=== PATIENT | male | born 1945 | race Caucasian/White ===

== ENCOUNTER 2016-07-12 12:25 | Inpatient (IN) | payer MEDICARE, BC ==
[~2016-07-12] VITALS: Ht 165.1 cm; Wt 93.8 kg
[2016-07-12] VITALS (10 sets, daily range): BP systolic 105–151; BP diastolic 51–66; PULSE 41–55; RESP 16–20; TEMP 98.2–98.7; O2SAT 94–98
[~2016-07-12 12:25] MED LIST: ALPR-138; AMIT10TA13; FENO50TA
[2016-07-12] MEDS ORDERED: SODIUM CHLORIDE 0.9% FLUSH 5 ML FLUSH IVF PRN (12:45)
--- NOTE | 2016-07-12 13:12 | RADRPT ---
EXAM DATE/TIME: 07/12/2016 13:00 [facility] COMPARISON: No previous studies available for comparison. INDICATIONS : Trauma; dizziness for one month. RADIATION DOSE: 56.35 CTDIvol (mGy) MEDICAL HISTORY : Hypertension. Cardiovascular disease SURGICAL HISTORY : CABG ENCOUNTER: Initial ACUITY: 1 day PAIN SCALE: 5/10 LOCATION: cranial TECHNIQUE: Multiple contiguous axial images were obtained of the head. Using automated exposure control and adj ustment of the mA and/or kV according to patient size, radiation dose was kept as low as reasonably a chievable to obtain optimal diagnostic quality images. FINDINGS: CEREBRUM: The ventricles are normal for age. There is mild bilateral cortical atrophy characteristic for patien t's age. No evidence of midline shift, mass lesion, hemorrhage or acute infarction. No extra-axial f luid collections are seen. POSTERIOR FOSSA: The cerebellum and brainstem are intact. The 4th ventricle is midline. The cerebellopontine angle i s unremarkable. EXTRACRANIAL: The visualized portion of the orbits is intact. Chronic sinus disease the ethmoid sinuses bilaterally . SKULL: The calvaria is intact. No evidence of skull fracture. CONCLUSION: Normal examination for a patient of this age. Feroz Abrams MD on July 12, 2016 at 13:09 Board Certified Radiologist. This report was verified electronically.
[2016-07-12] MEDS ORDERED: METO25TA3 PO (13:13)
[2016-07-12] MEDS ORDERED: METF500T4 PO (13:13)
[2016-07-12] MEDS ORDERED: SIMV40TA PO (13:13)
[2016-07-12] MEDS ORDERED: ALPH0.1S EACH EYE (13:13)
[2016-07-12] MEDS ORDERED: NORT10CA PO (13:13)
[2016-07-12] MEDS ORDERED: ASPI325T PO (13:13)
[2016-07-12 13:15] LABS: AUTOMATED NEUTROPHIL # 6.7 TH/MM3 (1.8-7.7); BASOPHIL # 0.1 TH/MM3 (0-0.2); BASOPHIL % 1.1 % (0.0-2.0); EOSINOPHIL # 0.7 TH/MM3 (0-0.4); EOSINOPHIL % 5.8 % (0.0-4.0); HEMATOCRIT 38.5 % (39.0-51.0); HEMO FLAGS DIFF FINAL; LYMPH % 26.2 % (9.0-44.0); MEAN CELL VOLUME 100.7 FL (80.0-100.0); MEAN CORPUSCULAR HEMOGLOBIN 35.6 PG (27.0-34.0); MEAN CORPUSCULAR HGB CONC 35.3 % (32.0-36.0); MONO % 8.5 % (0.0-8.0); NEUT % 58.4 % (16.0-70.0); PLATELET COUNT 215 TH/MM3 (150-450); RED BLOOD COUNT 3.83 MIL/MM3 (4.50-5.90); RED CELL DISTRIBUTION WIDTH 14.3 % (11.6-17.2); WHITE BLOOD COUNT 11.5 TH/MM3 (4.0-11.0)
--- NOTE | 2016-07-12 13:26 | RADRPT ---
EXAM DATE/TIME: 07/12/2016 13:09 [facility] COMPARISON: No previous studies available for comparison. INDICATIONS : Dizziness. Patient doesnt have any chest complaints. MEDICAL HISTORY : Hypertension. Cardiovascular disease. SURGICAL HISTORY : CABG. ENCOUNTER: Initial ACUITY: 1 day PAIN SCORE: 0/10 LOCATION: chest FINDINGS: A single view of the chest demonstrates the lungs to be symmetrically aerated without evidence of mas s, infiltrate or effusion. The cardiomediastinal contours are unremarkable. There is evidence of pre vious cardiothoracic surgery. Osseous structures are intact. CONCLUSION: No acute disease. Feroz Abrams MD on July 12, 2016 at 13:24 Board Certified Radiologist. This report was verified electronically.
[2016-07-12 13:29] LABS: ANION GAP 9 MEQ/L (5-15); BICARBONATE 24.2 MEQ/L (21.0-32.0); BLOOD UREA NITROGEN 22 MG/DL (7-18); CHLORIDE 105 MEQ/L (98-107); GLOMERULAR FILTRATION RATE 57 ML/MIN (>89); MAGNESIUM 1.9 MG/DL (1.5-2.5); POTASSIUM 4.3 MEQ/L (3.5-5.1); SODIUM (NA) 138 MEQ/L (136-145)
[2016-07-12 13:32] LABS: APTT (PATIENT) 25.7 SEC (24.3-30.1); PROTHROMBIN TIME - PATIENT 10.7 SEC (9.8-11.6)
[2016-07-12 13:33] LABS: CREATINE KINASE 139 U/L (39-308)
[2016-07-12 13:45] LABS: CKMB 1.6 NG/ML (0.5-3.6)
--- NOTE | 2016-07-12 14:44 | PD ---
HPI Chief Complaint: Dizziness Time Seen by Provider: 12:37 Travel History International Travel<30 days: No Contact w/Intl Traveler<30days: No Traveled to known affect area: No History of Present Illness HPI 71-year-old male came to the emergency room with history of dizziness that's on and off for past 1 month but since yesterday has been persistent. Patient says that when he stands up he gets worse and feels like he is going to fall. No history of nausea or vomiting. He has been feeling weak since past 2 days as well. He checked his heart rate yesterday morning and it was in 70s been at that time he did not have the symptoms. When he came in his heart rate was in the 40s. Blood pressure stable. Patient is awake and answering questions appropriately. No history of chest pain or syncopal episodes. Patient does have cardiac history and history of valve replacement. [facility] Past Medical History Narrative Medical List of his past medical history as reviewed from the nursing note. Anxiety: Yes Depression: Yes Cardiovascular Problems: Yes High Cholesterol: Yes Diabetes: Yes Patient Takes Glucophage: Yes Hypertension: Yes Past Surgical History Appendectomy: Yes Coronary Artery Bypass Graft: Yes Social History Alcohol Use: Yes (RARELY) Tobacco Use: No Substance Use: No Allergies-Medications (Allergen,Severity, Reaction): Coded Allergies: No Known Allergies (Verified , 07/21/06) Comments No known drug allergies. Reported Meds & Prescriptions Reported Meds & Active Scripts Active Reported Nortriptyline (Nortriptyline HCl) 10 Mg Cap 10 Mg PO HS Alphagan P Opth Drops (Brimonidine Tartrate) 0.1% Soln 1 Drop EACH EYE Q8HR Metoprolol Tartrate 25 Mg Tab 25 Mg PO BID Metformin ER (Metformin HCl) 500 Mg Milind 500 Mg PO DAILY With evening meal Simvastatin 40 Mg Tab 40 Mg PO HS Aspirin 325 Mg Tab 325 Mg PO DAILY Tricor (Fenofibrate) 145 Mg Tab Elavil (Amitriptyline HCl) 10 Mg Tab Xanax (Alprazolam) 0.25 Mg Tab Narrative Medication List of his home medications reviewed from the nursing note. Review of Systems Except as stated in HPI: all other systems reviewed are Neg Physical Exam Narrative GENERAL: Awake, alert, moderate distress, elderly, pale SKIN: Warm and dry. HEAD: Atraumatic. Normocephalic. EYES: Pupils equal and round. No scleral icterus. No injection or drainage. ENT: No nasal bleeding or discharge. Mucous membranes pink and moist. NECK: Trachea midline. No JVD. CARDIOVASCULAR: Regular rate and rhythm. Bradycardia. No murmur appreciated. RESPIRATORY: No accessory muscle use. Clear to auscultation. Breath sounds equal bilaterally. GASTROINTESTINAL: Abdomen soft, non-tender, nondistended. Hepatic and splenic margins not palpable. MUSCULOSKELETAL: No obvious deformities. No clubbing. No cyanosis. No edema. NEUROLOGICAL: Awake and alert. No obvious cranial nerve deficits. Motor grossly within normal limits. Normal speech. PSYCHIATRIC: Appropriate mood and affect; insight and judgment normal. Data Data Last Documented VS Vital Signs Date Time Temp Pulse Resp B/P Pulse Ox O2 Delivery O2 Flow Rate FiO2 07/12/16 15:30 45 18 115/59 97 Room Air 07/12/16 12:29 98.2 Orders Electrocardiogram (07/12/16 12:43) Basic Metabolic Panel (Bmp) (07/12/16 12:43) B-Type Natriuretic Peptide (07/12/16 12:43) Ckmb (Isoenzyme) Profile (07/12/16 12:43) Complete Blood Count With Diff (07/12/16 12:43) Magnesium (Mg) (07/12/16 12:43) Prothrombin Time / Inr (Pt) (07/12/16 12:43) Act Partial Throm Time (Ptt) (07/12/16 12:43) Troponin I (07/12/16 12:43) Chest, Single Ap (07/12/16 12:43) Ecg Monitoring (07/12/16 12:43) Bilateral Bp Monitoring (07/12/16 12:43) Iv Access Insert/Monitor (07/12/16 12:43) Oximetry (07/12/16 12:43) Oxygen Administration (07/12/16 12:43) Sodium Chloride 0.9% Flush (Ns Flush) (07/12/16 12:45) Ct Brain W/O Iv Contrast(Rout) (07/12/16 ) CKMB (07/12/16 12:55) CKMB% (07/12/16 12:55) Consult Cardiology (07/12/16 ) ^ Infusion (07/12/16 ) Dopamine Inj Premix (Dopamine Inj Premix (07/12/16 15:15) Dopamine Inj (Intropin Inj) (07/12/16 15:15) Dopamine Inj (Intropin Inj) (07/12/16 15:15) Aspirin (Aspirin) (07/12/16 16:00) Pravastatin (Pravachol) (07/12/16 21:00) Admit To Inpatient (07/12/16 ) Code Status (07/12/16 15:15) Vital Signs (Adult) ALLEN.Q1H (07/12/16 15:15) Activity Bed Rest (07/12/16 15:15) ^ Elevate Head Of Bed (07/12/16 15:15) Diet Heart Healthy (07/12/16 Dinner) Sodium Chlor 0.9% 1000 Ml Inj (Ns 1000 M (07/12/16 17:00) Sodium Chloride 0.9% Flush (Ns Flush) (07/12/16 15:15) Sodium Chloride 0.9% Flush (Ns Flush) (07/12/16 21:00) Pantoprazole Inj (Protonix Inj) (07/13/16 09:00) Albuterol-Ipratropium Neb (Duoneb Neb) (07/12/16 15:15) Complete Blood Count With Diff (07/13/16 04:00) Comprehensive Metabolic Panel (07/13/16 04:00) Troponin I (07/12/16 15:15) Troponin I (07/12/16 21:15) Prothrombin Time / Inr (Pt) (07/13/16 04:00) Magnesium (Mg) (07/13/16 04:00) Echo 2d Comp W/Dopp(Routine) (07/12/16 ) Gauge And Weigh Machine Operator / Telemetry (07/12/16 15:15) Enoxaparin Inj (Lovenox Inj) (07/12/16 16:00) Scd Bilateral/Knee High ALLEN.BID (07/12/16 15:15) Alfredo Bilateral/Knee High ALLEN.QSHIFT (07/12/16 15:15) ^ Initiate Protocol (07/12/16 15:15) ^ Instruction (07/12/16 15:15) Misc Nursing Information (07/12/16 15:15) Chlorhexidine 2% Cloth (Chlorhexidine 2% (07/13/16 04:00) Chlorhexidine 2% Cloth (Chlorhexidine 2% (07/12/16 15:15) Mrsa Pcr Surveillance (07/12/16 15:15) Inpatient Certification (07/12/16 ) Dopamine Inj Premix (Dopamine Inj Premix (07/12/16 15:30) Terbutaline Inj (Brethine Inj) (07/12/16 15:30) ^ Medication Admin Instruction (07/12/16 15:19) ^ Notify Dr: Other (07/12/16 15:19) Phosphorus (Po4) (07/12/16 15:19) Potassium Chlor 40 Meq Premix (Kcl 40 Me (07/12/16 15:30) Potassium Chlor 20 Meq Premix (Kcl 20 Me (07/12/16 15:30) Potassium Cl 40 Meq/30 Ml Liq (Kcl 40 Me (07/12/16 15:30) Potassium Chlor 40 Meq Premix (Kcl 40 Me (07/12/16 15:30) Potassium Chlor 20 Meq Premix (Kcl 20 Me (07/12/16 15:30) Magnesium Sulfate Inj (Magnesium Sulfate (07/12/16 15:30) Magnesium Oxide (Mag-Ox) (07/12/16 15:30) Magnesium Sulfate Inj (Magnesium Sulfate (07/12/16 15:30) Potassium Phosphate (K-Phos) (07/12/16 15:30) Sodium Phosphate Inj (Sodium Phosphate I (07/12/16 15:30) Potassium Cl 40 Meq/30 Ml Liq (Kcl 40 Me (07/12/16 15:30) Potassium Phosphate (K-Phos) (07/12/16 15:30) Potassium Phosphate Inj (Potassium Phosp (07/12/16 15:30) (Hub Use Only)Inp Phy Cons/Ref (07/12/16 ) Admit Order (Ed Use Only) (07/12/16 15:37) Labs Laboratory Tests Test 07/12/16 07/12/16 07/12/16 06:10 12:55 14:52 Nasal Screen MRSA (PCR) NEGATIVE White Blood Count 11.5 TH/MM3 Red Blood Count 3.83 MIL/MM3 Hemoglobin 13.6 GM/DL Hematocrit 38.5 % Mean Corpuscular Volume 100.7 FL Mean Corpuscular Hemoglobin 35.6 PG Mean Corpuscular Hemoglobin 35.3 % Concent Red Cell Distribution Width 14.3 % Platelet Count 215 TH/MM3 Mean Platelet Volume 9.2 FL Neutrophils (%) (Auto) 58.4 % Lymphocytes (%) (Auto) 26.2 % Monocytes (%) (Auto) 8.5 % Eosinophils (%) (Auto) 5.8 % Basophils (%) (Auto) 1.1 % Neutrophils # (Auto) 6.7 TH/MM3 Lymphocytes # (Auto) 3.0 TH/MM3 Monocytes # (Auto) 1.0 TH/MM3 Eosinophils # (Auto) 0.7 TH/MM3 Basophils # (Auto) 0.1 TH/MM3 CBC Comment DIFF FINAL Differential Comment Prothrombin Time 10.7 SEC Prothromb Time International 1.0 RATIO Ratio Activated Partial 25.7 SEC Thromboplast Time Sodium Level 138 MEQ/L Potassium Level 4.3 MEQ/L Chloride Level 105 MEQ/L Carbon Dioxide Level 24.2 MEQ/L Anion Gap 9 MEQ/L Blood Urea Nitrogen 22 MG/DL Creatinine 1.24 MG/DL Estimat Glomerular Filtration 57 ML/MIN Rate Random Glucose 116 MG/DL Calcium Level 9.6 MG/DL Magnesium Level 1.9 MG/DL Total Creatine Kinase 139 U/L Creatine Kinase MB 1.6 NG/ML Troponin I 0.02 NG/ML 0.02 NG/ML B-Type Natriuretic Peptide 427 PG/ML MDM Medical Decision Making Medical Screen Exam Complete: Yes Emergency Medical Condition: Yes Medical Record Reviewed: Yes Interpretation(s) Twelve-lead EKG was reviewed by me. Third degree AV block, left bundle branch block. Heart rate of 46 bpm. Differential Diagnosis Bradycardia, presyncope, AV block Narrative Course 2:56 PM blood test results of back and within normal limits. Chest x-ray and head CT are within normal limit. I was in the room and explaining the test results to the patient and I noticed that his heart rate dipped down to the high 30s for a few seconds and then bounce back to low to mid 40s. I decided to repeat the 12-lead EKG. The 12-lead EKG is suggestive of sinus bradycardia with multiple PACs versus Mobitz type II AV block. Given his low heart rate at this point I will put him on dopamine drip. Awaiting for the fertilizer supervisor to call back. I spoke with the cotton broker who asked me to hold patient's metoprolol and order a consult. Critical Care Narrative Aggregate critical care time was 60 minutes. Time to perform other separately billable procedures was not included in the critical care time. My time did not include minutes spent treating any other patients simultaneously or on activities that did not directly contribute to the patient's treatment. The services I provided to this patient were to treat and/or prevent clinically significant deterioration that could result in: Symptomatic bradycardia, high second degree block, dopamine drip I provided critical care services requiring my management, as noted below: Chart data review, documentation time, medication orders and management, vital sign assessments/reviewing monitor data, ordering and reviewing lab tests, ordering and interpreting/reviewing x-rays and diagnostic studies, care of the patient and discussion of the patient with the admitting physicians. Procedures EKG Prior to Arrival: Yes Physician Communication Physician Communication Dr. Kelly Diagnosis Primary Impression: Second degree AV block, Mobitz type II Additional Impressions: Dizziness Symptomatic bradycardia Admitting Information Admitting Physician Requests: Admit Venu Lazaro MD Jul 12, 2016 14:44
[2016-07-12] MEDS ORDERED: CHLORHEXIDINE GLUCONATE 2 % 1 PACK (2 CLOTHS) TOP PRN (15:15)
[2016-07-12] MEDS ORDERED: MISCELLANEOUS NURSING INFORMATION XX SCH (15:15)
[2016-07-12] MEDS ORDERED: DOPamine INJ PREMIX 500 ML IV SCH ×2 (15:15→15:30)
[2016-07-12] MEDS ORDERED: DOPamine INJ 1,600 MG in DEXTROSE 5% IN WATER INJ 240 ML IV SCH ×2 (15:15)
[2016-07-12] MEDS ORDERED: DOPAMINE IV SCH ×2 (15:15)
[2016-07-12] MEDS ORDERED: WATER IV SCH ×2 (15:15)
[2016-07-12] MEDS ORDERED: DEXTROSE 5% IV SCH ×2 (15:15)
[2016-07-12] MEDS ORDERED: SODIUM CHLORIDE 0.9% FLUSH 5 ML FLUSH IV FLUSH PRN (15:15)
[2016-07-12] MEDS ORDERED: SODIUM PHOSPHATE INJ 30 MMOL in SODIUM CHLOR 0.9% 250 ML INJ 240 ML IV PRN (15:30)
[2016-07-12] MEDS ORDERED: POTASSIUM PHOSPHATE MONOBASIC 500 MG TAB PO/TUBE PRN (15:30)
[2016-07-12] MEDS ORDERED: POTASSIUM CHLOR 20 MEQ PREMIX 100 ML IV PRN ×2 (15:30)
[2016-07-12] MEDS ORDERED: POTASSIUM CL 40 MEQ/30 ML LIQ UDC PO/TUBE PRN ×2 (15:30)
[2016-07-12] MEDS ORDERED: POTASSIUM PHOSPHATE MONOBASIC 500 MG TAB PO PRN (15:30)
[2016-07-12] MEDS ORDERED: MAGNESIUM OXIDE 400 MG TAB PO PRN (15:30)
[2016-07-12] MEDS ORDERED: POTASSIUM PHOSPHATE INJ 30 MMOL in SODIUM CHLOR 0.9% 250 ML INJ 250 ML IV PRN (15:30)
[2016-07-12] MEDS ORDERED: MAGNESIUM SULFATE INJ 2 GM in SODIUM CHLORIDE 0.9% INJ 96 ML IV PRN (15:30)
[2016-07-12] MEDS ORDERED: TERBUTALINE INJ 1 MG/ML AMP SQ PRN (15:30)
[2016-07-12] MEDS ORDERED: MAGNESIUM SULFATE INJ 4 GM in SODIUM CHLORIDE 0.9% INJ 92 ML IV PRN (15:30)
[2016-07-12] MEDS ORDERED: POTASSIUM CHLOR 40 MEQ PREMIX 100 ML IV PRN ×2 (15:30)
--- NOTE | 2016-07-12 16:51 | HHI.HP ---
[facility] Service Critical Care Medicine Primary Care Physician Non-Staff Admission Diagnosis bradycardia, Mobitz type II AV block, dizziness Diagnosis: (1) Second degree AV block, Mobitz type II Diagnosis: Principal (2) Dizziness Diagnosis: Principal (3) Symptomatic bradycardia Diagnosis: Principal (4) status post CABG and aortic valve replacement March 2016 Diagnosis: Secondary Chief Complaint: Dizziness Second-degree AV block Mobitz type II Travel History International Travel<30 Days: No Contact w/Intl Traveler <30 Da: No Traveled to Known Affected Are: No History of Present Illness Patient is a 71-year-old male with past medical history significant for hypertension, diabetes, dyslipidemia, recent CABG and bovine aortic valve replacement in March 2016 in [place] who presented to the emergency department with on and off dizziness for more than one month, but worsening since last 2 days. On standing up he feels like he is going to fall. In the ER heart rate was in the 40s initially and blood pressure was stable. No history of chest pain or syncopal episodes. Chest x-ray and head CT were normal. After admission to the ER patient's HR further dip down to low 30s EKG showed second-degree Mobitz type II AV block. Because of low heart rate and dizziness patient was started on dopamine drip. Cardiology Dr. Kelly had been consulted I evaluated the patient in the ED. He states that he is slightly improved, not feeling as many palpitations. Currently on dopamine 5 mcg per KG per minute. I explained to him that if his heart block is not resolved he most likely will need a pacemaker Review of Systems ROS Limitations: Other (as per HPI) Past Family Social History Allergies: Coded Allergies: No Known Allergies (Verified , 07/21/06) Past Medical History Coronary artery disease status post CABG Status post aVR and CABG in March 2016 Anxiety/depression Type 2 diabetes Hypertension Dyslipidemia Obesity Past Surgical History Status post AVR and CABG in March 2016 Appendectomy Reported Medications Nortriptyline (Nortriptyline HCl) 10 Mg Cap 10 Mg PO HS Alphagan P Opth Drops (Brimonidine Tartrate) 0.1% Soln 1 Drop EACH EYE Q8HR Metoprolol Tartrate 25 Mg Tab 25 Mg PO BID Metformin ER (Metformin HCl) 500 Mg Milind 500 Mg PO DAILY Simvastatin 40 Mg Tab 40 Mg PO HS Aspirin 325 Mg Tab 325 Mg PO DAILY Tricor (Fenofibrate) 145 Mg Tab Elavil (Amitriptyline HCl) 10 Mg Tab Xanax (Alprazolam) 0.25 Mg Tab Active Ordered Medications Currently receiving dopamine Family History Noncontributory Social History Occasional alcohol No tobacco or drug use Physical Exam Vital Signs Vital Signs Date Time Temp Pulse Resp B/P Pulse Ox O2 Delivery O2 Flow Rate FiO2 07/12/16 16:36 55 18 112/55 96 Room Air 07/12/16 15:30 45 18 115/59 97 Room Air 07/12/16 14:53 42 18 105/51 97 Room Air 07/12/16 12:46 97 Room Air 07/12/16 12:46 98 Room Air 07/12/16 12:43 42 18 98 Room Air 07/12/16 12:38 47 18 98 07/12/16 12:29 98.2 48 16 117/51 95 Room Air Physical Exam GENERAL: Awake, alert, in mild distress SKIN: Warm and dry. HEAD: Atraumatic. Normocephalic. EYES: Pupils equal and round. No scleral icterus. No injection or drainage. ENT: No nasal bleeding or discharge. Mucous membranes pink and moist. NECK: Trachea midline. No JVD. CARDIOVASCULAR: Second-degree Mobitz type II heart block. Bradycardia. Currently on 5 g per KG per minute of dopamine with heart rate bleeding from 45 -50 CHEST: Well-healing CABG scar RESPIRATORY: No accessory muscle use. Clear to auscultation. Breath sounds equal bilaterally. GASTROINTESTINAL: Abdomen obese soft, non-tender, nondistended. Hepatic and splenic margins not palpable. MUSCULOSKELETAL: No cyanosis. No edema. NEUROLOGICAL: Awake and alert. No obvious cranial nerve deficits. Motor grossly within normal limits. Normal speech. PSYCHIATRIC: Appropriate mood and affect; insight and judgment normal. Laboratory Laboratory Tests Test 07/12/16 12:55 White Blood Count 11.5 Red Blood Count 3.83 Hemoglobin 13.6 Hematocrit 38.5 Mean Corpuscular Volume 100.7 Mean Corpuscular Hemoglobin 35.6 Mean Corpuscular Hemoglobin 35.3 Concent Red Cell Distribution Width 14.3 Platelet Count 215 Mean Platelet Volume 9.2 Neutrophils (%) (Auto) 58.4 Lymphocytes (%) (Auto) 26.2 Monocytes (%) (Auto) 8.5 Eosinophils (%) (Auto) 5.8 Basophils (%) (Auto) 1.1 Neutrophils # (Auto) 6.7 Lymphocytes # (Auto) 3.0 Monocytes # (Auto) 1.0 Eosinophils # (Auto) 0.7 Basophils # (Auto) 0.1 CBC Comment DIFF FINAL Differential Comment Prothrombin Time 10.7 Prothromb Time International 1.0 Ratio Activated Partial 25.7 Thromboplast Time Sodium Level 138 Potassium Level 4.3 Chloride Level 105 Carbon Dioxide Level 24.2 Anion Gap 9 Blood Urea Nitrogen 22 Creatinine 1.24 Estimat Glomerular Filtration 57 Rate Random Glucose 116 Calcium Level 9.6 Magnesium Level 1.9 Total Creatine Kinase 139 Creatine Kinase MB 1.6 Troponin I 0.02 B-Type Natriuretic Peptide 427 Result Diagram: 07/12/16 1255 07/12/[address] of the head and chest x-ray did not show any acute findings Assessment and Plan Problem List: (1) Second degree AV block, Mobitz type II ICD Code: I44.1 Status: Acute (2) Dizziness ICD Code: R42 Status: Acute (3) Symptomatic bradycardia ICD Code: R00.1 Status: Acute (4) status post CABG and aortic valve replacement March 2016 Status: Acute (5) Anxiety ICD Code: F41.9 Status: Chronic (6) Depression ICD Code: F32.9 Status: Chronic (7) Hypertension ICD Code: I10 Status: Acute (8) Type 2 diabetes mellitus ICD Code: E11.9 Status: Chronic (9) Dyslipidemia ICD Code: E78.5 Status: Acute Assessment and Plan NEURO: Anxiety/depression -Hold Elavil. Continue when necessary Xanax. Continue Alphagan eyedrops RESP: -Nasal cannula oxygen if needed, when necessary bronchodilators if needed CV: Second-degree AV block Mobitz type II Symptomatic bradycardia/dizziness Status post 1 vessel CABG and bovine aortic valve replacement -Hold metoprolol, may need pacemaker the heart block not resolved in the next 24 -48 hours -Dopamine to keep heart rate about 40, MAP>65 -Hold metoprolol, continue aspirin simvastatin and TriCor -Cardiology Dr. Kelly, check 2-D echocardiogram trend cardiac enzymes GI: -Heart healthy diet, IV Protonix : -Monitor renal function closely. Place Patel catheter if needed ID: -No indication for antibiotics at this time HEME: -Monitor CBC, CMP, coags ENDO: Type 2 diabetes Dyslipidemia -Hold metformin, sliding scale insulin -Electrolyte replacement per protocol -Continue simvastatin, hold TriCor PROPH: -Bilateral lower extremity SCDs. Lovenox 40 mg subcutaneous daily, Protonix 40 mg IV daily -LINES: Utilize peripheral IVs, central line if needed CC time 37 min Code Status Full Discussed Condition With Dr. Lazaro and the patient and his Problem Qualifiers (1) Depression: Qualified Code: F32.9 - Depression, unspecified depression type (2) Hypertension: Qualified Code: I10 - Essential hypertension (3) Type 2 diabetes mellitus: Jessica Caballero MD Jul 12, 2016 16:51 Jessica Caballero MD Jul 12, 2016 16:51
--- NOTE | 2016-07-12 16:56 | MB ---
cc: POOL ORTEGA MD DATE OF CONSULTATION 07/12/16 HISTORY OF PRESENT ILLNESS Mr. Carrillo is a 71-year-old white male with a history of one vessel bypass and bioprosthetic aortic valve placement last year in [place]. He presents with dizziness for the last month which has been getting worse. He is not having any chest pain or shortness of breath. He had no symptoms prior to his bypass. His initial heart rate was 40s. He was found to have a second degree AV block. PAST MEDICAL HISTORY Positive for coronary artery disease, single vessel bypass and aortic valve replacement. History of diabetes mellitus, hypertension, dyslipidemia, obesity, depression, anxiety. MEDICATIONS Include: 1. Xanax. 2. Aspirin. 3. Simvastatin. 4. Metformin. 5. Nortriptaline. 6. Metoprolol 25 milligrams twice a day. 7. Alphagan Eye drops. ALLERGIES None. SOCIAL HISTORY The patient does not smoke anymore. He drinks alcohol infrequently. FAMILY HISTORY Negative for heart disease. REVIEW OF SYSTEMS The review of systems is otherwise negative. PHYSICAL EXAMINATION VITAL SIGNS: Blood pressure 115/59, pulse 45 and irregular. HEAD, EYES, EARS, NOSE, THROAT: Negative. NECK: 2+ carotid upstrokes, no bruits. LUNGS: Clear. HEART: Irregular. No murmur or gallop. ABDOMEN: Abdomen soft, obese. No bruits. EXTREMITIES: Without edema. 1+ distal pulses. NEUROLOGIC: Grossly nonfocal. CARDIOLOGY STUDIES EKG was reviewed and showed normal sinus rhythm, mild interventricular conduction delay and second degree AV block, slight TN prolongation suggestive of type I AV block; but type II Mobitz AV block can not completely excluded. LABS Hemoglobin 13.6. Potassium 4.3, creatinine 1.2. CK 139. Troponin 0.02. BNP 427. DIAGNOSIS: 1. Dizziness. 2. Bradycardia. 3. Second degree AV block. 4. Coronary artery disease, history of coronary bypass. 5. Status post aortic valve replacement. 6. Hypertension. 7. Diabetes mellitus. 8. Dyslipidemia. DISPOSITION: Mr. Carrillo will be monitored on telemetry. We will discontinue his metoprolol at this time. He continue his other medications including aspirin and simvastatin. I will follow him for cardiology during his hospitalization. He will be scheduled to follow up in our office as outpatient after discharge. MD CAROLYN Tirado /4:15 PM /4:31 PM [place]
[2016-07-12] MEDS ORDERED: GLUCAGON 1 MG/ML VIAL OTHER PRN (17:00)
[2016-07-12] MEDS: INSULIN ASPART SUPPLEMENTAL SCALE SQ SCH ×2 (17:00→20:43)
[2016-07-12] MEDS ORDERED: DEXTROSE 50% IN WATER 50 ML VIAL(D50) IV PUSH PRN (17:00)
[2016-07-12] MEDS: ASPIRIN 325 MG TAB PO SCH (17:05)
[2016-07-12] MEDS: ENOXAPARIN SODIUM 40 MG/0.4 ML SYRINGE SQ SCH (17:05)
[2016-07-12] MEDS ORDERED: BRIMONIDINE OPTH EACH EYE SCH (17:15)
[2016-07-12] MEDS: SODIUM CHLOR 0.9% 1000 ML INJ 1,000 ML IV SCH (18:26)
[2016-07-12] MEDS: SODIUM CHLORIDE 0.9% FLUSH 5 ML FLUSH IV FLUSH SCH (20:42)
[2016-07-12] MEDS: PRAVASTATIN SOD 80 MG TAB PO SCH (20:43)
[2016-07-12] MEDS: BRIMONIDINE TARTRATE 0.15% OPHT SOLN 5 ML BTL EACH EYE SCH (21:17)
[2016-07-13] VITALS (14 sets, daily range): BP systolic 108–160; BP diastolic 53–70; PULSE 44–91; RESP 12–24; TEMP 98.3–99; O2SAT 91–96
[2016-07-13] MEDS: CHLORHEXIDINE GLUCONATE 2 % 1 PACK (2 CLOTHS) TOP SCH (00:51)
[2016-07-13] MEDS: ALPRAZolam 0.25 MG TAB PO PRN ×2 (00:51→20:48)
[2016-07-13] MEDS: INSULIN ASPART SUPPLEMENTAL SCALE SQ SCH ×6 (00:51→21:00)
[2016-07-13] MEDS: SODIUM CHLOR 0.9% 1000 ML INJ 1,000 ML IV SCH ×2 (06:20→17:41)
[2016-07-13] MEDS: BRIMONIDINE TARTRATE 0.15% OPHT SOLN 5 ML BTL EACH EYE SCH ×3 (06:21→20:44)
[2016-07-13] MEDS: ASPIRIN 325 MG TAB PO SCH (07:58)
[2016-07-13] MEDS: SODIUM CHLORIDE 0.9% FLUSH 5 ML FLUSH IV FLUSH SCH ×2 (07:59→20:44)
[2016-07-13] MEDS: PANTOPRAZOLE SODIUM 40 MG VIAL IV SCH (07:59)
--- NOTE | 2016-07-13 08:15 | HHI.CCPN ---
Subjective Remarks/Hospital Course Patient is a 71-year-old male with past medical history significant for hypertension, diabetes, dyslipidemia, recent CABG and bovine aortic valve replacement in March 2016 in [place] who presented to the emergency department with on and off dizziness for more than one month, but worsening since last 2 days. On standing up he feels like he is going to fall. In the ER heart rate was in the 40s initially and blood pressure was stable. No history of chest pain or syncopal episodes. Chest x-ray and head CT were normal. After admission to the ER patient's HR further dip down to low 30s EKG showed second-degree Mobitz type II AV block. Because of low heart rate and dizziness patient was started on dopamine drip. Cardiology Dr. Kelly had been consulted. I evaluated the patient in the ED. He states that he is slightly improved, not feeling as many palpitations. Currently on dopamine 5 mcg per KG per minute. I explained to him that if his heart block is not resolved he most likely will need a pacemaker SUBJ 07/13: Patient had episode of bradycardia and hypotension at about6.30 a.m. today. Heart rate was in 50s blood pressure dropped to a map of 40. His dopamine was increased from 4 g per KG per min to 7 g per KG per min, his heart rate improved to 60s and map improved to 80. Monitor shows sinus rhythm, but intermittently goes in the Mobitz type II Objective Vital Signs Date Time Temp Pulse Resp B/P Pulse Ox O2 Delivery O2 Flow Rate FiO2 07/13/16 06:00 72 07/13/16 04:00 98.4 24 127/58 93 07/13/16 04:00 Nasal Cannula 3.00 Intake and Output 07/12/16 07/12/16 07/13/16 08:00 16:00 00:00 Intake Total 705 ml Output Total 350 ml Balance 355 ml Result Diagram: 07/12/16 1255 07/12/[address] of the head and chest x-ray did not show any acute findings Objective Remarks GENERAL: Awake, alert, in mild distress SKIN: Warm and dry. HEAD: Atraumatic. Normocephalic. EYES: Pupils equal and round. No scleral icterus. No injection or drainage. ENT: No nasal bleeding or discharge. Mucous membranes pink and moist. NECK: Trachea midline. No JVD. CARDIOVASCULAR: Intermittent Second-degree Mobitz type II heart block. On 7 g per KG per minute of dopamine with heart rate 50-60 CHEST: Well-healing CABG scar RESPIRATORY: No accessory muscle use. Clear to auscultation. Breath sounds equal bilaterally. GASTROINTESTINAL: Abdomen obese soft, non-tender, nondistended. Hepatic and splenic margins not palpable. MUSCULOSKELETAL: No cyanosis. No edema. NEUROLOGICAL: Awake and alert. No obvious cranial nerve deficits. Motor grossly within normal limits. Normal speech. PSYCHIATRIC: Appropriate mood and affect; insight and judgment normal. A/P Problem List: (1) Second degree AV block, Mobitz type II ICD Code: I44.1 Status: Acute (2) Hypotension ICD Code: I95.9 Status: Acute (3) Dizziness ICD Code: R42 Status: Acute (4) Symptomatic bradycardia ICD Code: R00.1 Status: Acute (5) status post CABG and aortic valve replacement March 2016 Status: Acute (6) Anxiety ICD Code: F41.9 Status: Chronic (7) Depression ICD Code: F32.9 Status: Chronic (8) Hypertension ICD Code: I10 Status: Acute (9) Type 2 diabetes mellitus ICD Code: E11.9 Status: Chronic (10) Dyslipidemia ICD Code: E78.5 Status: Acute Assessment and Plan NEURO: Anxiety/depression -Hold Elavil. Continue when necessary Xanax. Continue Alphagan eyedrops RESP: -Nasal cannula oxygen if needed, when necessary bronchodilators if needed CV: Second-degree AV block Mobitz type II Hypotension Symptomatic bradycardia/dizziness Status post 1 vessel CABG and bovine aortic valve replacement -Dopamine to keep heart rate about 40, MAP>65. Episode of bradycardia and hypotension required dopamine to be increased to 7 mics per KG per min -Hold metoprolol, may need pacemaker the heart block not resolved in the next 24 -48 hours -Continue aspirin simvastatin and TriCor -Cardiology Dr. Kelly, check 2-D echocardiogram trend cardiac enzymes GI: -Heart healthy diet, IV Protonix : -Monitor renal function closely. Place Patel catheter if needed ID: -No indication for antibiotics at this time HEME: -Monitor CBC, CMP, coags ENDO: Type 2 diabetes Dyslipidemia -Hold metformin, sliding scale insulin -Electrolyte replacement per protocol -Continue simvastatin, hold TriCor PROPH: -Bilateral lower extremity SCDs. Lovenox 40 mg subcutaneous daily, Protonix 40 mg IV daily -LINES: Utilize peripheral IVs, central line if needed CC time 40 min Problem Qualifiers (1) Depression: Qualified Code: F32.9 - Depression, unspecified depression type (2) Hypertension: Qualified Code: I10 - Essential hypertension (3) Type 2 diabetes mellitus: Jessica Caballero MD Jul 13, 2016 08:15
[2016-07-13 08:23] LABS: AUTOMATED NEUTROPHIL # 10.6 TH/MM3 (1.8-7.7); BASOPHIL # 0.1 TH/MM3 (0-0.2); EOSINOPHIL # 0.2 TH/MM3 (0-0.4); EOSINOPHIL % 1.6 % (0.0-4.0); HEMATOCRIT 38.2 % (39.0-51.0); HEMO FLAGS DIFF FINAL; LYMPH % 12.7 % (9.0-44.0); LYMPHOCYTE # 1.8 TH/MM3 (1.0-4.8); MEAN CELL VOLUME 100.9 FL (80.0-100.0); MEAN CORPUSCULAR HEMOGLOBIN 34.4 PG (27.0-34.0); MEAN CORPUSCULAR HGB CONC 34.1 % (32.0-36.0); MONO % 11.1 % (0.0-8.0); NEUT % 73.6 % (16.0-70.0); PLATELET COUNT 215 TH/MM3 (150-450); RED BLOOD COUNT 3.79 MIL/MM3 (4.50-5.90); RED CELL DISTRIBUTION WIDTH 14.3 % (11.6-17.2); WHITE BLOOD COUNT 14.5 TH/MM3 (4.0-11.0)
[2016-07-13 08:25] LABS: PROTHROMBIN TIME - PATIENT 11.4 SEC (9.8-11.6)
[2016-07-13 08:40] LABS: ALKALINE PHOSPHATASE 45 U/L (45-117); ALT (GPT) 24 U/L (12-78); ANION GAP 9 MEQ/L (5-15); AST (GOT) 13 U/L (15-37); BICARBONATE 23.2 MEQ/L (21.0-32.0); BLOOD UREA NITROGEN 19 MG/DL (7-18); CHLORIDE 105 MEQ/L (98-107); GLOMERULAR FILTRATION RATE 58 ML/MIN (>89); MAGNESIUM 1.7 MG/DL (1.5-2.5); POTASSIUM 4.2 MEQ/L (3.5-5.1); SODIUM (NA) 137 MEQ/L (136-145); TOTAL BILIRUBIN ADULT 1.3 MG/DL (0.2-1.0)
--- NOTE | 2016-07-13 12:17 | EKG ---
Date Performed: 07/12/2016 Time Performed: 14:44:57 PTAGE: 71 years EKG: SINUS BRADYCARDIA WITH SECOND-DEGREE AV BLOCK MOBITZ 1 LEFT BUNDLE BRANCH BLOCK NONSPECIFIC ST & T-WAVE ABNORMALITY ABNORMAL ECG INTERPRETATION BASED ON A DEFAULT AGE OF 40 YEARS PREVIOUS TRACING : 07/12/2016 12.39 Since previous tracing, no significant change noted DOCTOR: Stephen Herman Interpretating Date/Time 07/13/2016 12:16:37
--- NOTE | 2016-07-13 12:17 | EKG ---
Date Performed: 07/13/2016 Time Performed: 07:44:08 PTAGE: 71 years EKG: Sinus bradycardia with second-degree Mobitz 1 block Left bundle branch block Borderline ECG PREVIOUS TRACING : 07/12/2016 14.44 Since previous tracing, no significant change noted DOCTOR: Stephen Herman Interpretating Date/Time 07/13/2016 12:17:23
--- NOTE | 2016-07-13 12:17 | EKG ---
Date Performed: 07/12/2016 Time Performed: 12:39:42 PTAGE: 71 years EKG: SINUS BRADYCARDIA WITH SECOND-DEGREE MOBITZ 1 BLOCK LEFT BUNDLE BRANCH BLOCK ABNORMAL ECG PREVIOUS TRACING : 07/21/2006 12.40 Compared to previous tracing, second-degree block is new. DOCTOR: Stephen Herman Interpretating Date/Time 07/13/2016 12:15:43
[2016-07-13] MEDS: ENOXAPARIN SODIUM 40 MG/0.4 ML SYRINGE SQ SCH (15:53)
[2016-07-13] MEDS: RESP: ALBUTEROL 2.5 MG/IPRATROPIUM 0.5 MG NEB (PRN) INH (16:18)
--- NOTE | 2016-07-13 17:42 | EC ---
Study Study Date:07/13/2016 STUDY CONCLUSIONS SUMMARY - Left ventricle: The cavity size was normal. Wall thickness was normal. Systolic function was normal. The estimated ejection fraction was 55%. Wall motion was normal; there were no regional wall motion abnormalities. - Aortic valve: A bioprosthesis was present. - Mitral valve: Calcified annulus. Moderately thickened, mildly calcified leaflets, . Mild regurgitation. - Right ventricle: The cavity size was mildly dilated. Wall thickness was normal. - Tricuspid valve: Mild regurgitation. - Pulmonary arteries: Systolic pressure was mildly increased. PA peak pressure: 45mm Hg (S). If LV function is below 40, please consider prescribing an ACEI or ARB or document rationale for non-use. PROCEDURE DATA STUDY STATUS: Elective. Procedure: Transthoracic echocardiography. Image quality was good. Scanning was performed from the parasternal, apical, and subcostal acoustic windows. Study completion: The patient tolerated the procedure well. Transthoracic echocardiography. M-mode, complete 2D, complete spectral Doppler, and color Doppler. Patient status: Inpatient. CARDIAC ANATOMY LEFT VENTRICLE: The cavity size was normal. Wall thickness was normal. Systolic function was normal. The estimated ejection fraction was 55%. Wall motion was normal; there were no regional wall motion abnormalities. AORTIC VALVE: A bioprosthesis was present. Doppler: Transvalvular velocity was within the normal range. There was no stenosis. No regurgitation. Valve area: 2.49cm^2(VTI). Valve area: 1.79cm^2 (Vmax). Mean gradient: 10mm Hg (S). Peak gradient: 24mm Hg (S). AORTA: Aortic root: The aortic root was normal in size. MITRAL VALVE: Calcified annulus. Moderately thickened, mildly calcified leaflets, . Doppler: Transvalvular velocity was within the normal range. There was no evidence for stenosis. Mild regurgitation. LEFT ATRIUM: The atrium was normal in size. RIGHT VENTRICLE: The cavity size was mildly dilated. Wall thickness was normal. PULMONIC VALVE: Doppler: Transvalvular velocity was within the normal range. There was no evidence for stenosis. No regurgitation. TRICUSPID VALVE: Structurally normal valve. Doppler: Transvalvular velocity was within the normal range. Mild regurgitation. PULMONARY ARTERY: The main pulmonary artery was normal-sized. Systolic pressure was mildly increased. RIGHT ATRIUM: The atrium was normal in size. PERICARDIUM: There was no pericardial effusion. SYSTEMIC VEINS: Inferior vena cava: The vessel was normal in size. BASIC MEASUREMENTS ADULT Normal Left ventricle LV internal dimension, ED, chordal level, *39.6 mm 43-52 PLAX LV internal dimension, ES, chordal level, 29.8 mm 23-38 PLAX Fractional shortening, chordal level, PLAX *25 % >29 LV posterior wall thickness, ED 11.9 mm IVS/LVPW ratio, ED 0.99 <1.3 Ventricular septum Septal thickness, ED 11.8 mm Right ventricle RV internal dimension, ED, PLAX 28.4 mm 19-38 BASIC MEASUREMENTS ADULT Normal Aorta Root diameter, ED 32 mm 20-37 Left atrium Anterior-posterior dimension, ES 37 mm 19-40 LA/aortic root ratio 1.16 DOPPLER MEASUREMENTS ADULT Normal Main pulmonary artery Pressure, S *45 mm Hg =30 Aortic valve Peak velocity, S 245 cm/s Mean velocity, S 139 cm/s VTI, S 38.8 cm Mean gradient, S 10 mm Hg Peak gradient, S 24 mm Hg Valve area, VTI 2.49 cm^2 Valve area, Vmax 1.79 cm^2 Tricuspid valve Regurgitant peak velocity 296 cm/s Peak RV-RA gradient, S 35 mm Hg Maximal regurgitant velocity 296 cm/s Systemic veins Estimated CVP 10 mm Hg Right ventricle RV pressure, S *45 mm Hg <30 LEGEND: Mean values are shown as u=mean value. Asterisk (*) penaloza values outside specified normal range. Prepared and signed by Yina Kelly [id number]
[2016-07-13] MEDS: PRAVASTATIN SOD 80 MG TAB PO SCH (20:44)
[2016-07-14] VITALS (13 sets, daily range): BP systolic 121–184; BP diastolic 55–78; PULSE 44–62; RESP 19–29; TEMP 97.8–100; O2SAT 23–96
[2016-07-14] MEDS: INSULIN ASPART SUPPLEMENTAL SCALE SQ SCH ×6 (01:00→20:31)
[2016-07-14] MEDS: CHLORHEXIDINE GLUCONATE 2 % 1 PACK (2 CLOTHS) TOP SCH (04:00)
[2016-07-14] MEDS: SODIUM CHLOR 0.9% 1000 ML INJ 1,000 ML IV SCH (04:45)
[2016-07-14] MEDS: BRIMONIDINE TARTRATE 0.15% OPHT SOLN 5 ML BTL EACH EYE SCH ×3 (05:20→20:31)
[2016-07-14 06:41] LABS: AUTOMATED NEUTROPHIL # 9.7 TH/MM3 (1.8-7.7); BASOPHIL # 0.1 TH/MM3 (0-0.2); BASOPHIL % 0.7 % (0.0-2.0); EOSINOPHIL # 0.1 TH/MM3 (0-0.4); EOSINOPHIL % 0.8 % (0.0-4.0); HEMATOCRIT 34.1 % (39.0-51.0); HEMO FLAGS DIFF FINAL; LYMPH % 15.5 % (9.0-44.0); LYMPHOCYTE # 2.1 TH/MM3 (1.0-4.8); MEAN CELL VOLUME 101.8 FL (80.0-100.0); MEAN CORPUSCULAR HEMOGLOBIN 35.5 PG (27.0-34.0); MEAN CORPUSCULAR HGB CONC 34.9 % (32.0-36.0); PLATELET COUNT 163 TH/MM3 (150-450); RED BLOOD COUNT 3.35 MIL/MM3 (4.50-5.90); RED CELL DISTRIBUTION WIDTH 14.6 % (11.6-17.2); WHITE BLOOD COUNT 13.5 TH/MM3 (4.0-11.0)
[2016-07-14 07:09] LABS: ALKALINE PHOSPHATASE 37 U/L (45-117); ALT (GPT) 17 U/L (12-78); ANION GAP 9 MEQ/L (5-15); AST (GOT) 15 U/L (15-37); BICARBONATE 22.6 MEQ/L (21.0-32.0); BLOOD UREA NITROGEN 13 MG/DL (7-18); CHLORIDE 107 MEQ/L (98-107); GLOMERULAR FILTRATION RATE 74 ML/MIN (>89); MAGNESIUM 1.7 MG/DL (1.5-2.5); POTASSIUM 3.7 MEQ/L (3.5-5.1); SODIUM (NA) 139 MEQ/L (136-145); TOTAL BILIRUBIN ADULT 1.6 MG/DL (0.2-1.0)
[2016-07-14] MEDS: ASPIRIN 325 MG TAB PO SCH (09:02)
[2016-07-14] MEDS: ALPRAZolam 0.25 MG TAB PO PRN ×2 (09:02→21:11)
[2016-07-14] MEDS: PANTOPRAZOLE SODIUM 40 MG VIAL IV SCH (09:03)
[2016-07-14] MEDS: SODIUM CHLORIDE 0.9% FLUSH 5 ML FLUSH IV FLUSH SCH ×2 (09:03→20:31)
--- NOTE | 2016-07-14 10:54 | HHI.CCPN ---
Subjective Remarks/Hospital Course Patient is a 71-year-old male with past medical history significant for hypertension, diabetes, dyslipidemia, recent CABG and bovine aortic valve replacement in March 2016 in [place] who presented to the emergency department with on and off dizziness for more than one month, but worsening since last 2 days. On standing up he feels like he is going to fall. In the ER heart rate was in the 40s initially and blood pressure was stable. No history of chest pain or syncopal episodes. Chest x-ray and head CT were normal. After admission to the ER patient's HR further dip down to low 30s EKG showed second-degree Mobitz type II AV block. Because of low heart rate and dizziness patient was started on dopamine drip. Cardiology Dr. Kelly had been consulted. I evaluated the patient in the ED. He states that he is slightly improved, not feeling as many palpitations. Currently on dopamine 5 mcg per KG per minute. I explained to him that if his heart block is not resolved he most likely will need a pacemaker SUBJ 07/13: Patient had episode of bradycardia and hypotension at about6.30 a.m. today. Heart rate was in 50s blood pressure dropped to a map of 40. His dopamine was increased from 4 g per KG per min to 7 g per KG per min, his heart rate improved to 60s and map improved to 80. Monitor shows sinus rhythm, but intermittently goes in the Mobitz type II 07/14/16: Had remained off dopamine >[address] Kelly request, patient persist in second-degree AV block, Mobitz type II. HR 40-45, BP stable. Discussed with Dr. Kelly, plan for PPM in am Objective Vital Signs Date Time Temp Pulse Resp B/P Pulse Ox O2 Delivery O2 Flow Rate FiO2 07/14/16 08:20 91 Nasal Cannula 3.00 07/14/16 06:00 44 07/14/16 04:00 98.4 20 155/64 Intake and Output 07/13/16 07/13/16 07/14/16 08:00 16:00 00:00 Intake Total 924 ml 240 ml 2128 ml Output Total 600 ml 600 ml 750 ml Balance 324 ml -360 ml 1378 ml Result Diagram: 07/14/16 0540 07/14/[address] of the head and chest x-ray did not show any acute findings Objective Remarks GENERAL: Awake, alert, in mild distress SKIN: Warm and dry. HEAD: Atraumatic. Normocephalic. EYES: Pupils equal and round. No scleral icterus. No injection or drainage. ENT: No nasal bleeding or discharge. Mucous membranes pink and moist. NECK: Trachea midline. No JVD. CARDIOVASCULAR: Intermittent Second-degree Mobitz type II heart block. Off dopamine with heart rate 40-45 CHEST: Well-healing CABG scar RESPIRATORY: No accessory muscle use. Clear to auscultation. Breath sounds equal bilaterally. GASTROINTESTINAL: Abdomen obese soft, non-tender, nondistended. Hepatic and splenic margins not palpable. MUSCULOSKELETAL: No cyanosis. No edema. NEUROLOGICAL: Awake and alert. No obvious cranial nerve deficits. Motor grossly within normal limits. Normal speech. PSYCHIATRIC: Appropriate mood and affect; insight and judgment normal. A/P Problem List: (1) Second degree AV block, Mobitz type II ICD Code: I44.1 Status: Acute (2) Hypotension ICD Code: I95.9 Status: Acute (3) Dizziness ICD Code: R42 Status: Acute (4) Symptomatic bradycardia ICD Code: R00.1 Status: Acute (5) status post CABG and aortic valve replacement March 2016 Status: Acute (6) Anxiety ICD Code: F41.9 Status: Chronic (7) Depression ICD Code: F32.9 Status: Chronic (8) Hypertension ICD Code: I10 Status: Acute (9) Type 2 diabetes mellitus ICD Code: E11.9 Status: Chronic (10) Dyslipidemia ICD Code: E78.5 Status: Acute Assessment and Plan NEURO: Anxiety/depression -Holding Elavil. Continue when necessary Xanax. Continue Alphagan eyedrops RESP: -Nasal cannula oxygen if needed, when necessary bronchodilators if needed CV: Second-degree AV block Mobitz type II Intermittent Hypotension Symptomatic bradycardia/dizziness Status post 1 vessel CABG and bovine aortic valve replacement -Currently off dopamine, but remains in second-degree AV block Mobitz type II. Plan for PPM a.m. -Keep holding metoprolol, Continue aspirin simvastatin and TriCor -Cardiology Dr. Kelly, 2-D echo with normal ejection fraction, bioprosthetic aortic valve GI: -Heart healthy diet, IV Protonix. NPO after midnight : -Monitor renal function closely. Place Patel catheter if needed ID: -No indication for antibiotics at this time HEME: -Monitor CBC, CMP, coags ENDO: Type 2 diabetes Dyslipidemia -Hold metformin, sliding scale insulin -Electrolyte replacement per protocol -Continue simvastatin, hold TriCor PROPH: -Bilateral lower extremity SCDs. Lovenox 40 mg subcutaneous daily, Protonix 40 mg IV daily -LINES: Utilize peripheral IVs, central line if needed CC time 30 min Problem Qualifiers (1) Depression: Qualified Code: F32.9 - Depression, unspecified depression type (2) Hypertension: Qualified Code: I10 - Essential hypertension (3) Type 2 diabetes mellitus: Jessica Caballero MD Jul 14, 2016 10:54
[2016-07-14] MEDS: ENOXAPARIN SODIUM 40 MG/0.4 ML SYRINGE SQ SCH (16:00)
[2016-07-14] MEDS ORDERED: EPINEPHrine HCL (1:10,000) 1 MG/10 ML SYRINGE ONE (18:04)
[2016-07-14] MEDS ORDERED: LIDOCAINE HCL 2% 50 ML VIAL ONE (18:11)
[2016-07-14] MEDS: PRAVASTATIN SOD 80 MG TAB PO SCH (20:31)
[2016-07-14] MEDS: hydrALAZINE HCL 20 MG/ML VIAL IV PRN (23:11)
[2016-07-15] VITALS (16 sets, daily range): BP systolic 141–173; BP diastolic 63–86; PULSE 42–96; RESP 18–30; TEMP 97.7–100; O2SAT 93–99
[2016-07-15] MEDS: RESP: ALBUTEROL 2.5 MG/IPRATROPIUM 0.5 MG NEB (PRN) INH (00:49)
[2016-07-15] MEDS: INSULIN ASPART SUPPLEMENTAL SCALE SQ SCH ×6 (01:00→20:16)
[2016-07-15] MEDS ORDERED: ALPRAZolam 0.5 MG TAB PO ONE (01:45)
[2016-07-15] MEDS: CHLORHEXIDINE GLUCONATE 2 % 1 PACK (2 CLOTHS) TOP SCH (04:00)
[2016-07-15] MEDS: BRIMONIDINE TARTRATE 0.15% OPHT SOLN 5 ML BTL EACH EYE SCH ×3 (05:06→20:17)
[2016-07-15] MEDS: ASPIRIN 325 MG TAB PO SCH (08:34)
[2016-07-15] MEDS: PANTOPRAZOLE SODIUM 40 MG VIAL IV SCH (08:34)
[2016-07-15] MEDS: SODIUM CHLORIDE 0.9% FLUSH 5 ML FLUSH IV FLUSH SCH (08:35)
--- NOTE | 2016-07-15 10:27 | HHI.CCPN ---
Subjective Remarks/Hospital Course Patient is a 71-year-old male with past medical history significant for hypertension, diabetes, dyslipidemia, recent CABG and bovine aortic valve replacement in March 2016 in [place] who presented to the emergency department with on and off dizziness for more than one month, but worsening since last 2 days. On standing up he feels like he is going to fall. In the ER heart rate was in the 40s initially and blood pressure was stable. No history of chest pain or syncopal episodes. Chest x-ray and head CT were normal. After admission to the ER patient's HR further dip down to low 30s EKG showed second-degree Mobitz type II AV block. Because of low heart rate and dizziness patient was started on dopamine drip. Cardiology Dr. Kelly had been consulted. I evaluated the patient in the ED. He states that he is slightly improved, not feeling as many palpitations. Currently on dopamine 5 mcg per KG per minute. I explained to him that if his heart block is not resolved he most likely will need a pacemaker SUBJ 07/13: Patient had episode of bradycardia and hypotension at about6.30 a.m. today. Heart rate was in 50s blood pressure dropped to a map of 40. His dopamine was increased from 4 g per KG per min to 7 g per KG per min, his heart rate improved to 60s and map improved to 80. Monitor shows sinus rhythm, but intermittently goes in the Mobitz type II 07/14/16: Had remained off dopamine >[address] Kelly request, patient persist in second-degree AV block, Mobitz type II. HR 40-45, BP stable. Discussed with Dr. Kelly, plan for PPM in am 07/15/16: Remains in high degree AV block (second-degree Mobitz type II versus third-degree heart block). Stable blood pressure. Getting pacemaker placed today Objective Vital Signs Date Time Temp Pulse Resp B/P Pulse Ox O2 Delivery O2 Flow Rate FiO2 07/15/16 06:00 48 07/15/16 04:00 99.5 29 159/72 94 07/15/16 04:00 Nasal Cannula 5.00 Intake and Output 07/14/16 07/14/16 07/15/16 08:00 16:00 00:00 Intake Total 894 ml 1315 ml 240 ml Output Total 950 ml 650 ml 0 ml Balance -56 ml 665 ml 240 ml Result Diagram: 07/14/1653907/14/[address] of the head and chest x-ray did not show any acute findings Objective Remarks GENERAL: Awake, alert, in mild distress SKIN: Warm and dry. HEAD: Atraumatic. Normocephalic. EYES: Pupils equal and round. No scleral icterus. No injection or drainage. ENT: No nasal bleeding or discharge. Mucous membranes pink and moist. NECK: Trachea midline. No JVD. CARDIOVASCULAR: Intermittent Second-degree Mobitz type II heart block vs CHB. Off dopamine with HR 40-45 CHEST: Well-healing CABG scar RESPIRATORY: No accessory muscle use. Clear to auscultation. Breath sounds equal bilaterally. GASTROINTESTINAL: Abdomen obese soft, non-tender, nondistended. Hepatic and splenic margins not palpable. MUSCULOSKELETAL: No cyanosis. No edema. NEUROLOGICAL: Awake and alert. No obvious cranial nerve deficits. Motor grossly within normal limits. Normal speech. PSYCHIATRIC: Appropriate mood and affect; insight and judgment normal. Urinary Catheter: Yes Assessment to: Continue A/P Problem List: (1) Second degree AV block, Mobitz type II ICD Code: I44.1 Status: Acute (2) Hypotension ICD Code: I95.9 Status: Acute (3) Dizziness ICD Code: R42 Status: Acute (4) Symptomatic bradycardia ICD Code: R00.1 Status: Acute (5) status post CABG and aortic valve replacement March 2016 Status: Acute (6) Anxiety ICD Code: F41.9 Status: Chronic (7) Depression ICD Code: F32.9 Status: Chronic (8) Hypertension ICD Code: I10 Status: Acute (9) Type 2 diabetes mellitus ICD Code: E11.9 Status: Chronic (10) Dyslipidemia ICD Code: E78.5 Status: Acute Assessment and Plan NEURO: Anxiety/depression -Holding Elavil. Continue when necessary Xanax. Continue Alphagan eyedrops RESP: -Nasal cannula oxygen if needed, when necessary bronchodilators if needed CV: Second-degree AV block Mobitz type II Intermittent Hypotension Symptomatic bradycardia/dizziness Status post 1 vessel CABG and bovine aortic valve replacement -Currently off dopamine, remains in second-degree AV block Mobitz type II. PPM today -Keep holding metoprolol, Continue aspirin simvastatin and TriCor -Cardiology Dr. Kelly, 2-D echo with normal ejection fraction, bioprosthetic aortic valve GI: -IV Protonix. NPO for PPM placement : -Monitor renal function closely. ID: -No indication for antibiotics at this time HEME: -Monitor CBC, CMP, coags ENDO: Type 2 diabetes Dyslipidemia -Hold metformin, sliding scale insulin -Electrolyte replacement per protocol -Continue simvastatin, hold TriCor PROPH: -Bilateral lower extremity SCDs. Lovenox 40 mg subcutaneous daily, Protonix 40 mg IV daily -LINES: Utilize peripheral IVs, central line if needed Level 3 Consult Hospitalist to assume care in am after PPM placement Problem Qualifiers (1) Depression: Qualified Code: F32.9 - Depression, unspecified depression type (2) Hypertension: Qualified Code: I10 - Essential hypertension (3) Type 2 diabetes mellitus: Jessica Caballero MD Jul 15, 2016 10:27
[2016-07-15] MEDS ORDERED: LIDOCAINE HCL 2% 50 ML VIAL ONE (15:04)
[2016-07-15] MEDS ORDERED: VANCOMYCIN 500 MG VIAL ONE (15:04)
[2016-07-15] MEDS ORDERED: VANCOMYCIN HCL 1000 MG VIAL ONE (15:04)
[2016-07-15] MEDS ORDERED: ceFAZolin INJ 1,000 MG VIAL ONE (15:05)
[2016-07-15] MEDS ORDERED: SODIUM CHLOR 0.9% 250 ML INJ 250 ML ONE (15:05)
[2016-07-15] MEDS ORDERED: SODIUM CHLORIDE 0.9% FLUSH 5 ML FLUSH IVF PRN (16:45)
[2016-07-15] MEDS ORDERED: MIDAZOLAM HCL 2 MG/2 ML VIAL ONE (16:55)
[2016-07-15] MEDS ORDERED: DO NOT ADM ANY ANTICOAGULANT DRUGS XX PRN (17:00)
--- NOTE | 2016-07-15 17:45 | RADRPT ---
EXAM DATE/TIME: 07/15/2016 16:59 [facility] COMPARISON: CHEST SINGLE AP, July 12, 2016, 13:09. INDICATIONS : Patient post pacemaker placement. Evaluate for pneumothorax. MEDICAL HISTORY : Hypertension. Cardiovascular disease. SURGICAL HISTORY : CABG. ENCOUNTER: Initial ACUITY: 1 day PAIN SCORE: 0/10 LOCATION: chest FINDINGS: A single view of the chest demonstrates prominent perihilar vascular congestion. 6 intact sternal wir es and a left subclavian pacer are stable. The cardiomediastinal contours are unremarkable. Osseous structures are intact. CONCLUSION: Perihilar vascular congestion increased since the . Emigdio Casey MD on July 15, 2016 at 17:43 Board Certified Radiologist. This report was verified electronically.
[2016-07-15] MEDS: PRAVASTATIN SOD 80 MG TAB PO SCH (20:16)
[2016-07-15] MEDS: SODIUM CHLORIDE 0.9% FLUSH 5 ML FLUSH IVF SCH (20:16)
[2016-07-15] MEDS: ceFAZolin 2 GM PREMIX 50 ML IV SCH (23:23)
[2016-07-15] MEDS: ALPRAZolam 0.25 MG TAB PO PRN (23:23)
[2016-07-16] VITALS (15 sets, daily range): BP systolic 135–181; BP diastolic 66–86; PULSE 60–119; RESP 18–20; TEMP 97.6–99; O2SAT 91–96
[2016-07-16] MEDS: hydrALAZINE HCL 20 MG/ML VIAL IV PRN (00:22)
[2016-07-16] MEDS: INSULIN ASPART SUPPLEMENTAL SCALE SQ SCH ×5 (00:33→17:00)
[2016-07-16] MEDS: CHLORHEXIDINE GLUCONATE 2 % 1 PACK (2 CLOTHS) TOP SCH (00:35)
[2016-07-16] MEDS: BRIMONIDINE TARTRATE 0.15% OPHT SOLN 5 ML BTL EACH EYE SCH ×2 (04:57→14:00)
[2016-07-16] MEDS ORDERED: VANCOMYCIN INJ 1,000 MG in SODIUM CHLOR 0.9% 250 ML INJ 250 ML IV ONE (05:00)
[2016-07-16] MEDS: ASPIRIN 325 MG TAB PO SCH (08:32)
[2016-07-16] MEDS: SODIUM CHLORIDE 0.9% FLUSH 5 ML FLUSH IVF SCH (08:32)
[2016-07-16] MEDS: ceFAZolin 2 GM PREMIX 50 ML IV SCH (08:32)
[2016-07-16] MEDS: PANTOPRAZOLE SODIUM 40 MG VIAL IV SCH (08:32)
--- NOTE | 2016-07-16 11:04 | HHI.PR ---
Subjective Remarks no complains, patient up and ambulating around his room telemetry in SR Objective Vitals Vital Signs Date Time Temp Pulse Resp B/P Pulse Ox O2 Delivery O2 Flow Rate FiO2 07/16/16 10:34 60 07/16/16 09:00 100 07/16/16 08:15 108 07/16/16 08:15 91 Room Air 07/16/16 08:15 97.6 108 20 143/66 91 07/16/16 06:00 108 07/16/16 05:00 115 07/16/16 04:00 118 07/16/16 04:00 99.0 116 20 157/79 96 07/16/16 04:00 Nasal Cannula 2.00 07/16/16 03:00 119 07/16/16 02:00 119 07/16/16 01:30 153/75 07/16/16 01:00 119 07/16/16 00:20 99.0 103 18 181/86 96 07/16/16 00:20 Nasal Cannula 2.00 07/16/16 00:00 102 07/15/16 23:00 96 07/15/16 22:00 95 07/15/16 21:00 92 07/15/16 20:30 158/82 07/15/16 20:00 97.7 89 18 162/86 96 07/15/16 20:00 88 07/15/16 20:00 Nasal Cannula 2.00 07/15/16 19:00 88 07/15/16 18:28 96 Nasal Cannula 2.00 07/15/16 18:27 85 18 155/80 96 07/15/16 18:27 85 07/15/16 17:21 Room Air 07/15/16 14:00 45 07/15/16 12:00 97.7 42 23 141/63 95 07/15/16 12:00 42 07/15/16 12:00 95 Nasal Cannula 5.00 I/O 07/15/16 07/15/16 07/15/16 07/16/16 07/16/16 07/16/16 07:00 15:00 23:00 07:00 15:00 23:00 Intake Total 0 ml 0 ml 550 ml Output Total 400 ml 400 ml Balance -400 ml -400 ml 550 ml Intake Oral 0 ml 300 ml IV Total 0 ml 0 ml 250 ml Output Urine Total 400 ml 400 ml Stool Total 0 ml 0 ml # Voids 1 # Bowel Movements 0 Result Diagram: 07/14/16 0540 07/14/16 0540 Imaging Last Impressions Chest X-Ray 07/15/16 0000 Signed Impressions: Service Date/Time: Friday, July 15, 2016 16:59 - CONCLUSION: Perihilar vascular congestion increased since the . Emigdio Casey MD Head CT 07/12/16 0000 Signed Impressions: Service Date/Time: Tuesday, July 12, 2016 13:00 - CONCLUSION: Normal examination for a patient of this age. Feroz Abrams MD Objective Remarks awake and alert, oriented x 3 anicteric lungs no rales regular rhythm abdomen soft, nontender extremities no edema Left UE- S/s in place, good radial pulses Procedures 07/15- implantation of dual chamber pacemaker A/P Problem List: (1) Dizziness ICD Code: R42 Status: Acute (2) status post CABG and aortic valve replacement March 2016 Status: Acute Assessment and Plan 71 years old male presenting with dizziness Second degree AV Block- Mobitz type 2 S/P implantation of dual chamber PM 07/15 History of S/P CABG and Aortic valve replacement 2016 Continue on statins Cardiology ff- DC if cleared with Leatha Mathis MD Jul 16, 2016 11:04
--- NOTE | 2016-07-16 17:27 | HHI.DS ---
Discharge Summary Admission Date Jul 12, 2016 at 15:38 Discharge Date: Jul 16, 2016 Admitting Diagnosis bradycardia, Mobitz type II AV block, dizziness (1) Second degree AV block, Mobitz type II ICD Code: I44.1 Diagnosis: Principal (2) Dizziness ICD Code: R42 Diagnosis: Secondary (3) status post CABG and aortic valve replacement March 2016 Diagnosis: Secondary Procedures 07/15- implantation of dual chamber pacemaker Brief History - From Admission Patient is a 71-year-old male with past medical history significant for hypertension, diabetes, dyslipidemia, recent CABG and bovine aortic valve replacement in March 2016 in [place] who presented to the emergency department with on and off dizziness for more than one month, but worsening since last 2 days. On standing up he feels like he is going to fall. In the ER heart rate was in the 40s initially and blood pressure was stable. No history of chest pain or syncopal episodes. Chest x-ray and head CT were normal. After admission to the ER patient's HR further dip down to low 30s EKG showed second-degree Mobitz type II AV block. Because of low heart rate and dizziness patient was started on dopamine drip. Cardiology Dr. Kelly had been consulted I evaluated the patient in the ED. He states that he is slightly improved, not feeling as many palpitations. Currently on dopamine 5 mcg per KG per minute. I explained to him that if his heart block is not resolved he most likely will need a pacemaker CBC/BMP: 07/14/16 0540 07/14/16 0540 Significant Findings Laboratory Tests Test 07/14/16 05:40 White Blood Count 13.5 TH/MM3 (4.0-11.0) Red Blood Count 3.35 MIL/MM3 (4.50-5.90) Hemoglobin 11.9 GM/DL (13.0-17.0) Hematocrit 34.1 % (39.0-51.0) Mean Corpuscular Volume 101.8 FL (80.0-100.0) Mean Corpuscular Hemoglobin 35.5 PG (27.0-34.0) Neutrophils (%) (Auto) 72.0 % (16.0-70.0) Monocytes (%) (Auto) 11.0 % (0.0-8.0) Neutrophils # (Auto) 9.7 TH/MM3 (1.8-7.7) Monocytes # (Auto) 1.5 TH/MM3 (0-0.9) Estimat Glomerular Filtration 74 ML/MIN (>89) Rate Calcium Level 8.1 MG/DL (8.5-10.1) Total Bilirubin 1.6 MG/DL (0.2-1.0) Alkaline Phosphatase 37 U/L (45-117) Albumin 3.1 GM/DL (3.4-5.0) PE at Discharge awake and alert, oriented x 3 anicteric lungs no rales regular rhythm abdomen soft, nontender extremities no edema Left UE- S/s in place, good radial pulses Pt update on day of discharge patient awake and alert, no pain complains, telemetry sinus Hospital Course 71 years old male presenting with dizziness Second degree AV Block- Mobitz type 2 S/P implantation of dual chamber PM 07/15 History of S/P CABG and Aortic valve replacement 2016 Continue on statins Cardiology ff- DC if cleared with Dr. Kelly History of HTN, DM, Hyperlipidemia continue home meds . BB discontinued Pt Condition on Discharge: Stable Discharge Disposition: Discharge Home Discharge Time: <= 30 minutes Discharge Instructions DIET: Follow Instructions for: Heart Healthy Diet Speech Therapy-Diet Recommends: Regular Activities you can perform: Weight Bearing as Farhan Other Activity Instructions: please give specific instructions S/P AICD Follow up Referrals: Cardiology - 2 Weeks with Yina Kelly MD PCP Follow-up - 07/21/16 with PCP- refer to [facility] Continued Medications: Alprazolam (Xanax) 0.25 Mg Tab Aspirin (Aspirin) 325 Mg Tab 325 MG PO DAILY #30 Ref 0 TAB Brimonidine Opth Drops (Alphagan P Opth Drops) 0.1% Soln 1 DROP EACH EYE Q8HR Intraocular pressure #1 Ref 0 BOTTLE Fenofibrate (Tricor) 145 Mg Tab Metformin ER (Metformin ER) 500 Mg Milind 500 MG PO DAILY With evening meal Blood Sugar Management Ref 0 TAB Nortriptyline (Nortriptyline) 10 Mg Cap 10 MG PO HS Depression Control Ref 0 CAP Simvastatin (Simvastatin) 40 Mg Tab 40 MG PO HS Cholesterol Management #30 Ref 0 TAB Discontinued Medications: Amitriptyline Hcl (Elavil) 10 Mg Tab Metoprolol Tartrate (Metoprolol Tartrate) 25 Mg Tab 25 MG PO BID #60 Ref 0 TAB Leatha Benoit MD Jul 16, 2016 17:27
--- NOTE | 2016-07-21 15:02 | MR ---
cc: POOL [facility]TE[facility] DATE: 07/15/2016 PROCEDURE PERFORMED: Placement of [employer] dual-chamber pacemaker. INDICATIONS FOR THE PROCEDURE: Mobitz type II degree AV block with secondary AV block with severe symptomatic bradycardia, high-degree AV block. ACCESS SITE: Left subclavian vein. EQUIPMENT USED: [employer] model #[id number] dual-chamber pacemaker, serial number [id number]. Right atrial lead is a [employer] model #168ATC-46 screw-in atrial lead, serial number [id number]. Right ventricular lead is a [employer] model 168ATC-58 cm screw-in ventricular lead, serial number [id number]. LEAD TESTING: Right atrial lead: P wave 1.5 millivolts. Lead impedance 680 Ohms. Pacing threshold 1.5 volts at 0.4 milliseconds. Right ventricular lead: R wave 12.0 millivolts. Lead impedance 550 Ohms. Pacing threshold 0.5 volts at 0.4 milliseconds. Pacing at 10 volts, no diaphragmatic stimulation. MODE: DDDR, lower rate 60, upper rate 120. DIAGNOSIS: Successful placement of [employer] dual-chamber pacemaker. DISPOSITION: Mr. Carrillo will be monitored on telemetry with serial chest x-rays and EKGs. We will continue perioperative antibiotics. He will be discharged home tomorrow if stable. I will see him back for followup in our office after discharge. MD ALYSIA Tirado/EMILY /4:45 PM /2:53 PM [place]
== END 2016-07-16 17:53 | disposition home or self-care (01) | DRG 244 ==
LOC: NEPE 12:25 → NEDA 15:38 → HIMW 18:05 → HCIS 07-15 16:53 → HCIN 07-15 18:22
PROVIDERS: ADMIT Internal Medicine; ATTEND Internal Medicine
PROC: 0JH606Z Insertion of Pacemaker, Dual Chamber into Chest Subcutaneous Tissue and Fascia, Open Approach (ICD-10-PCS; principal; 2016-07-15)
PROC: 02H63JZ Insertion of Pacemaker Lead into Right Atrium, Percutaneous Approach (ICD-10-PCS; 2016-07-15)
PROC: 02HK3JZ Insertion of Pacemaker Lead into Right Ventricle, Percutaneous Approach (ICD-10-PCS; 2016-07-15)
DX: I44.1 Atrioventricular block, second degree (principal); I95.9 Hypotension, unspecified; E11.9 Type 2 diabetes mellitus without complications; I10 Essential (primary) hypertension; Z95.3 Presence of xenogenic heart valve; R42 Dizziness and giddiness; R00.1 Bradycardia, unspecified; F32.9 Major depressive disorder, single episode, unspecified; F41.9 Anxiety disorder, unspecified; E78.00 Pure hypercholesterolemia, unspecified; Z79.84 Long term (current) use of oral hypoglycemic drugs; I25.10 Atherosclerotic heart disease of native coronary artery without angina pectoris; Z95.1 Presence of aortocoronary bypass graft; E78.5 Hyperlipidemia, unspecified; E66.9 Obesity, unspecified; Z87.891 Personal history of nicotine dependence
CPT/HCPCS: 33208; 70450; 71010; 76937; 80048; 80053; 82550; 82552; 82948; 83735; 83880; 84100; 84484; 85025; 85610; 85730; 87641; 93005; 93306; 94640; 94664; 96365; C1785; C1898; C9113; J0171; J0360; J0690; J1265; J1650; J1815; J2250; J3010; J3370; J7030; J7050